=== PATIENT | female | born 1950 | race Caucasian/White ===

== ENCOUNTER → 2017-03-24 | Outpatient (CLI) | payer MEDICARE, BC | END | disposition home or self-care (01) | LOC: PTH.S 13:06 | DX: M51.16 Intervertebral disc disorders with radiculopathy, lumbar region (principal); M51.37 Other intervertebral disc degeneration, lumbosacral region; M47.26 Other spondylosis with radiculopathy, lumbar region; M47.897 Other spondylosis, lumbosacral region; M43.17 Spondylolisthesis, lumbosacral region; Z98.890 Other specified postprocedural states ==